=== PATIENT | female | born 1975 | race Caucasian/White ===

== ENCOUNTER → 2021-07-29 13:16 | Outpatient (BNVA) | payer OTHER, MEDICAID, SELFPAY | PROVIDERS: Visit Provider Nurse Practitioner Family | DX: Z20.822 Contact with and (suspected) exposure to COVID-19 (principal) | CPT/HCPCS: 87635 ==

== ENCOUNTER → 2021-08-20 10:10 | Outpatient (BNVA) | payer OTHER, MEDICAID, SELFPAY | PROVIDERS: Visit Provider Registered Nurse | DX: F32.9 Major depressive disorder, single episode, unspecified (principal); F41.9 Anxiety disorder, unspecified; M19.90 Unspecified osteoarthritis, unspecified site; M06.9 Rheumatoid arthritis, unspecified; E03.9 Hypothyroidism, unspecified; Z76.89 Persons encountering health services in other specified circumstances | CPT/HCPCS: 80053; 84443; 85025; 85651; 86140; 86431 ==

== ENCOUNTER → 2021-08-26 16:01 | Outpatient (BNVA) | payer OTHER, MEDICAID, SELFPAY | PROVIDERS: Visit Provider Registered Nurse | DX: R82.5 Elevated urine levels of drugs, medicaments and biological substances (principal) | CPT/HCPCS: 80307 ==